=== PATIENT | male | born 1995 | race Caucasian/White ===

== ENCOUNTER 2018-07-08 12:49 | Emergency (ER) | payer SELFPAY ==
[2018-07-08 12:59] VITALS: BP 151/79
--- NOTE | 2018-07-08 13:03 | EDPHY ---
H & P Stated Complaint: right ankle pain after trippinng going up stairs Time Seen by Provider: 07/08/18 12:54 HPI/ROS: Chief Complaint: Ankle injury HPI: 23-year-old male presenting with right ankle pain after an eversion injury last night walking up some stairs. Patient states he slipped and fell to his knee, twisting his right ankle. He has been able to weight bear but with pain since that time. No prior injuries. Did not hit his head. No numbness or tingling. Denies other injuries at this time. ROS: 10 systems were reviewed and were negative except those elements noted in the HPI. PMH: Denies Social History: No smoking, no alcohol, Family History: non-contributory Physical Exam: General: Awake, alert, no acute distress Right lower extremity: Right hip: Nontender, full range of motion without pain Right knee: Nontender, full range of motion without pain Right ankle: Tenderness over anterior talotibial ligament reproducing presenting complaint, mild swelling, no medial or lateral malleolar tenderness, no calcaneal tenderness, no midfoot tenderness. Decreased range of motion secondary to pain. Sensations intact distally. 2+ dorsalis pedis pulses. Capillary refill less than 3 sec. Skin: No rash - Medical/Surgical History Hx Asthma: No Hx Chronic Respiratory Disease: No Hx Diabetes: No Hx Cardiac Disease: No Hx Renal Disease: No Hx Cirrhosis: No Hx Alcoholism: No Hx HIV/AIDS: No Hx Splenectomy or Spleen Trauma: No Other PMH: left shoulder surgery - Social History Smoking Status: Former smoker Constitutional: Initial Vital Signs Temperature (C) 36.6 C 07/08/18 12:57 Heart Rate 69 07/08/18 12:57 Respiratory Rate 18 07/08/18 12:57 Blood Pressure 151/79 H 07/08/18 12:57 O2 Sat (%) 96 07/08/18 12:57 O2 Delivery Mode Room Air Allergies/Adverse Reactions: No Known Allergies Allergy (Verified 07/08/18 12:53) Home Medications: Medication Instructions Recorded No Medications [No Home 1 ea [facility] [place]10 Medications] Medical Decision Making - Diagnostics Imaging Results: Imaging Impressions Ankle X-Ray 07/08/18 13:00 Impression: Negative right ankle series. ED Course/Re-evaluation: Ankle x-ray is negative. Patient placed in a Velcro ankle splint for support. Will refer to primary care physician for follow-up. Departure - Departure Disposition: Home, Routine, Self-Care Clinical Impression: Ankle sprain Condition: Good Instructions: Ankle Sprain (ED), Ankle Stirrup Splint (ED) Additional Instructions: You may take ibuprofen, 600 mg 3 times a day. You may also alternate with acetaminophen, 1000 mg 3 times a day. You may continue to wear the Velcro ankle splint for support. Apply ice for 15 min of every hour while awake for the next 2 days. You may continue to wear the Velcro ankle splint for support. Resume normal walking and movement within 2-3 days to avoid stiffening and delayed healing. Follow up with primary care physician in 3-4 days for recheck. Referrals: Malaika Rutherford MD [Medical Doctor] - As per Instructions
== END 2018-07-08 13:45 | disposition home or self-care (01) ==
LOC: CED 12:49
DX: S93.401A Sprain of unspecified ligament of right ankle, initial encounter (principal); W10.8XXA Fall (on) (from) other stairs and steps, initial encounter; Y92.9 Unspecified place or not applicable; Z87.891 Personal history of nicotine dependence
CPT/HCPCS: 73610-PO